=== PATIENT | female | born 1980 | race Caucasian/White ===

== ENCOUNTER 2017-10-27 14:26 | Emergency (ER) | payer OTHER ==
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
[2017-10-27 15:53] VITALS: BP 147/55; PULSE 87; RESP 18; TEMP 98.2; O2SAT 99
== END 2017-10-27 16:14 | disposition home or self-care (01) ==
DX: S20.219A Contusion of unspecified front wall of thorax, initial encounter (principal); S70.02XA Contusion of left hip, initial encounter; S70.12XA Contusion of left thigh, initial encounter; F17.200 Nicotine dependence, unspecified, uncomplicated; W10.9XXA Fall (on) (from) unspecified stairs and steps, initial encounter